=== PATIENT | female | born 1950 | race Caucasian/White ===

== ENCOUNTER 2017-07-17 12:02 | Day surgery (SDC) | payer MEDICARE, OTHER ==
[~2017-07-17 12:02] MED LIST: Lactated Ringers 1,000 ML IV SCH; Sodium Chloride 0.9% 10 ML Syringe FLUSH PRN; Sodium Chloride 0.9% 2.5 ML Syringe FLUSH PRN
--- NOTE | 2017-07-17 13:22 | PCM.PREANE ---
Preanesthetic Assessment - Anesthesia/Transfusion/Family Hx Anesthesia History: Prior Anesthesia Without Reaction Family History of Anesthesia Reaction: No Transfusion History: No Prior Transfusion(s) Intubation History: Unknown - Review of Systems General: No Symptoms Pulmonary: No Symptoms Cardiovascular: No Symptoms Gastrointestinal: No Symptoms, Other (h/o colon polyps, multiple colonoscopies) Neurological: No Symptoms Other: Reports: None - Physical Assessment NPO Status Date: 07/16/17 NPO Status Time: 18:00 O2 Sat by Pulse Oximetry: 95 Respiratory Rate: 16 Vital Signs: Last Vital Signs Temp 36.6 C 07/17/17 12:19 Pulse 65 07/17/17 12:19 Resp 16 07/17/17 12:19 BP 115/79 07/17/17 12:19 Pulse Ox 95 07/17/17 12:19 Height: 1.65 m Weight: 75.75 kg ASA Class: 2 Mental Status: Alert & Oriented x3 Airway Class: Mallampati = 2 Dentition: Reports: Partial (upper) Thyro-Mental Finger Breadths: 3 Mouth Opening Finger Breadths: 2 ROM/Head Extension: Full Lungs: Clear to Auscultation, Normal Respiratory Effort Cardiovascular: Regular Rate, Regular Rhythm - Allergies Allergies/Adverse Reactions: Allergies Allergy/AdvReac Type Severity Reaction Status Date / Time adhesive tape Allergy Rash Verified 07/15/17 17:02 - Anesthesia Plan Pre-Op Medication Ordered: None - Acknowledgements Anesthesia Type Planned: MAC Pt an Appropriate Candidate for the Planned Anesthesia: Yes Alternatives and Risks of Anesthesia Discussed w Pt/Guardian: Yes Pt/Guardian Understands and Agrees with Anesthesia Plan: Yes PreAnesthesia Questionnaire HEENT History: Reports: Cataract, Macular Degeneration Other HEENT History: wears reading glasses, has upper removable partial denture Cardiovascular History: Reports: High Cholesterol Other Cardiovascular History: denies hypertension, states takes Lasix and HCTZ for water retention Gastrointestinal History: Reports: Colon Polyp, GERD, Hiatal Hernia [employer] History: Reports: Musculoskeletal History: Reports: Arthritis Psychiatric History: Reports: Anxiety Endocrine/Metabolic History: Reports: Hypothyroidism - Past Surgical History HEENT Surgical History: Reports: Cataract Surgery GI Surgical History: Reports: Colonoscopy Female Surgical History: Reports: Tubal Ligation Neurological Surgical History: Reports: Laminectomy - SUBSTANCE USE Smoking Status *Q: Former Smoker Tobacco Use Within Last Twelve Months: No Recreational Drug Use History: No - HOME MEDS Home Medications: Home Meds Aspirin [Adult Low Dose Aspirin EC] 81 mg PO DAILY 07/15/17 [History] Calcium Carbonate/Vitamin D3 [Calcium 600 + Vit D 200] 1 cap PO DAILY 07/15/17 [ History] Fenofibrate Nanocrystallized [Fenofibrate] 145 mg PO DAILY 07/15/17 [History] Ferrous Sulfate 1 tab PO DAILY 07/15/17 [History] Fish Oil/DHA/EPA [Fish Oil 1,200 MG] 1,200 mg PO DAILY 07/15/17 [History] Fluticasone Propionate [Flonase] 1 spray NASBOTH DAILY PRN 07/15/17 [History] Furosemide [Lasix] 20 mg PO DAILY 07/15/17 [History] Hydrochlorothiazide 25 mg PO DAILY 07/15/17 [History] Inulin/Chromium Picolinate [Fiber Gummies] 2 tab PO DAILY 07/15/17 [History] Levothyroxine Sodium 88 mg PO DAILY 07/15/17 [History] Loratadine [Claritin] 10 mg PO DAILY 07/15/17 [History] Meloxicam 15 mg PO DAILY 07/15/17 [History] Multivitamin [Multi-Vitamin Daily] 1 tab PO DAILY 07/15/17 [History] Omeprazole 40 mg PO DAILY 07/15/17 [History] Potassium Chloride 10 meq PO DAILY 07/15/17 [History] Prelief 1 cap PO DAILY 07/15/17 [History] Vit A/Vit C/Vit E/Zinc/Copper [Preservision Areds Softgel] 1 cap PO DAILY [History] Vitamin E 400 mg PO DAILY 07/15/17 [History] - CURRENT (IN HOUSE) MEDS Current Meds: Current Medications Lactated Ringer's (Ringers, Lactated) 1,000 mls @ 125 mls/hr IV ASDIRECTED NAVEED Last Admin: 07/17/17 12:22 Dose: 125 mls/hr Sodium Chloride (Saline Flush) 10 ml FLUSH ASDIRECTED PRN PRN Reason: Keep Vein Open Sodium Chloride (Saline Flush) 2.5 ml FLUSH ASDIRECTED PRN PRN Reason: Keep Vein Open
[2017-07-17] MEDS ORDERED: fentaNYL 100 MCG/2 ML SDV ONE (15:29)
[2017-07-17] MEDS ORDERED: Midazolam 1 MG/ML 2 ML SDV ONE (15:29)
[2017-07-17] MEDS ORDERED: Propofol 200 MG/20 ML SDV ONE (15:29)
[2017-07-17] MEDS ORDERED: Ondansetron 4 MG/2 ML SDV ONE (15:29)
--- NOTE | 2017-07-17 19:11 | PCM.OPNOTE ---
- General Post-Op/Procedure Note Date of Surgery/Procedure: 07/17/17 Operative Procedure(s): Colonoscopy Findings: Diverticulosis Pre Op Diagnosis: Hx of colon polyps Post-Op Diagnosis: Diverticulosis Anesthesia Technique: MAC Primary Surgeon: Barbara Chaparro Condition: Good
--- NOTE | 2017-07-17 19:20 | PCM.POSTAN ---
POST ANESTHESIA ASSESSMENT - MENTAL STATUS Mental Status: Alert, Oriented - RESPIRATORY Respiratory Status: Respiratory Rate WNL, Airway Patent, O2 Saturation Stable - CARDIOVASCULAR CV Status: Pulse Rate WNL, Blood Pressure Stable - GASTROINTESTINAL GI Status: No Symptoms - PAIN Pain Score: 0 - POST OP HYDRATION Hydration Status: Adequate & Stable
--- NOTE | 2017-07-17 19:43 | PCM48HPAN ---
Post Anesthesia Note - EVALUATION WITHIN 48HRS OF ANESTHETIC Vital Signs in Normal Range: Yes Patient Participated in Evaluation: Yes Respiratory Function Stable: Yes Airway Patent: Yes Cardiovascular Function Stable: Yes Hydration Status Stable: Yes Pain Control Satisfactory: Yes Nausea and Vomiting Control Satisfactory: Yes Mental Status Recovered: Yes - COMMENTS/OBSERVATIONS Free Text/Narrative:: Walked out accompanied.
--- NOTE | 2017-07-17 23:33 | OR ---
SURGEON: CEZAR COKER MD DATE OF PROCEDURE: 07/17/2017 PREOPERATIVE DIAGNOSIS: History of colon polyps. POSTOPERATIVE DIAGNOSIS: Diverticulosis. PROCEDURE PERFORMED: Screening colonoscopy. INSTRUMENT USED: Olympus colonoscope. ANESTHESIA: MAC. EXTENT OF EXAM: To the cecum. PREPARATION: Good. LIMITATIONS: None. INDICATIONS: The patient is a 66-year-old female, who has a history of colon polyps. She is due for repeat scope. We discussed the procedure as well as expected perioperative course. We discussed the risks, including bleeding, infection, or damage to the surrounding structures including perforation. The patient verbalized understanding and wishes to proceed. PROCEDURE IN DETAIL: The patient was brought in the Endoscopy Suite and placed in the left lateral decubitus position. A time-out was completed verifying the patient's name, age, date of , allergies, and procedure to be performed. Monitored anesthesia care was induced, and continuous oxygen was provided via nasal cannula throughout the procedure. After adequate sedation was achieved, a digital rectal exam was performed. This examination was within normal limits. A well- lubricated colonoscope was inserted in the rectum and advanced under direct visualization to the level of the cecum. The cecum was identified by both visual and anatomic landmarks. Picture was taken of the cecal cap, but I was unable to retroflex the scope within the cecum. The scope was then fully withdrawn while examining the color, texture, anatomy, and integrity of the mucosa from the cecum to the anal canal. Findings were consistent with diverticulosis. The remainder of the colonic mucosa appeared normal. The scope was brought into the rectum and retroflexed to allow visualization of the anal canal opening. This appeared normal and a photograph was taken. The scope was straightened out and removed from the patient. The cecum to anus time was 6 minutes. The patient was transferred to the recovery room in stable condition. ENDOSCOPIC DIAGNOSIS: Diverticulosis. RECOMMENDATIONS: Follow up in clinic in 2 weeks. REG DINH /[id number]
== END 2017-07-17 19:40 | disposition home or self-care (01) ==
LOC: MW.SDS 12:02
PROVIDERS: ATTEND Surgery
DX: Z12.11 Encounter for screening for malignant neoplasm of colon (principal); Z86.010 Personal history of colon polyps; Z80.0 Family history of malignant neoplasm of digestive organs; F41.9 Anxiety disorder, unspecified; M19.90 Unspecified osteoarthritis, unspecified site; K21.9 Gastro-esophageal reflux disease without esophagitis; E78.00 Pure hypercholesterolemia, unspecified; E03.9 Hypothyroidism, unspecified; I10 Essential (primary) hypertension; Z79.51 Long term (current) use of inhaled steroids; Z79.82 Long term (current) use of aspirin; Z79.899 Other long term (current) drug therapy; Z98.51 Tubal ligation status; Z98.49 Cataract extraction status, unspecified eye; Z98.890 Other specified postprocedural states; Z91.048 Other nonmedicinal substance allergy status; Z87.891 Personal history of nicotine dependence
CPT/HCPCS: G0105; J2250; J2405; J3010; J7120; 00810; J2704

== ENCOUNTER 2022-09-13 06:29 | Day surgery (SDC) | payer MEDICARE, BC ==
[~2022-09-13 06:29] MED LIST changes: +Sodium Chloride 0.9% 20 ML SDV IV PRN
[2022-09-13] MEDS ORDERED: Propofol 200 MG/20 ML SDV ONE (07:39)
== END 2022-09-13 09:20 | disposition home or self-care (01) ==
LOC: MW.SDS 06:29
PROVIDERS: ATTEND Surgery
DX: Z12.11 Encounter for screening for malignant neoplasm of colon (principal); D12.5 Benign neoplasm of sigmoid colon; K57.30 Diverticulosis of large intestine without perforation or abscess without bleeding; F41.9 Anxiety disorder, unspecified; K21.9 Gastro-esophageal reflux disease without esophagitis; J30.9 Allergic rhinitis, unspecified; E78.00 Pure hypercholesterolemia, unspecified; E03.9 Hypothyroidism, unspecified; M19.90 Unspecified osteoarthritis, unspecified site; Z91.048 Other nonmedicinal substance allergy status; Z86.010 Personal history of colon polyps; Z87.19 Personal history of other diseases of the digestive system; Z79.899 Other long term (current) drug therapy; Z79.82 Long term (current) use of aspirin; Z79.890 Hormone replacement therapy; Z98.890 Other specified postprocedural states
CPT/HCPCS: 45380; J2704; J7120; 00812; 99100